=== PATIENT | male | born 1995 | race Two or more races ===

== ENCOUNTER 2020-09-26 23:50 | Emergency (ER) | payer OTHER ==
[2020-09-26 23:57] VITALS: BP 123/80; PULSE 73; TEMP 98.3; BMI 24.3
== END 2020-09-27 00:59 | disposition home or self-care (01) ==
LOC: FER 23:50
DX: S63.502A Unspecified sprain of left wrist, initial encounter (principal)
CPT/HCPCS: 73110-TC-LT-FY; 99283-25